=== PATIENT | female | born 1935 | race Caucasian/White ===

== ENCOUNTER 2017-01-20 01:25 | Inpatient (IN) | payer MEDICARE, OTHER ==
[~2017-01-20] VITALS: Ht 165.1 cm; Wt 52.2 kg
--- NOTE | ~2017-01-20 | DS ---
Discharge Summary [facility] [address] [place]. [address] NAME: HALIMA SALDAÑA : 31 STATUS : DIS IN PAT#: [id number] AGE: 81 ADM/REG DATE : 01/20/17 MR#: [id number] REPORT SERV DATE: 01/25/17 DICTATED BY: MIRA BOSTON DATE: 01/24/17 REPORT STATUS : Draft TRANSCRIBED BY: MODL DATE: 01/24/17 ADMISSION DATE: 01/20/2017 DISCHARGE DATE: 01/24/2017 PRINCIPAL DIAGNOSIS: Acute on chronic systolic congestive heart failure with pleural effusion. SECONDARY DIAGNOSES: Hypoxemic respiratory failure with tissue hypoxia causing acute encephalopathy in the setting of chronic dementia, also atrial fibrillation, general debility. HISTORY OF PRESENT ILLNESS: Please see Dr. Pizarro's dictation on 01/20/2017. HOSPITAL COURSE: Admitted with acute on chronic systolic congestive heart failure with significant alteration in mental status. She was received diuretics, afterload reducers with gradual improvement in body water, but dyspnea however remained. She was made DNR and there was concern that this would actually be hospice care. However, with afterload reduction, she had some improvement. A thoracentesis was done, evacuating the right pleural effusion, found to be transudative, and she did feel significantly better. She was started upon Entresto therapy and met the maximum benefit of hospitalization by 01/24/2017. She continue hydralazine 50 b.i.d., Isordil 20 b.i.d., Remeron 15 at bedtime, Megace 400 daily, Lopressor 12.5 b.i.d., daily Demadex, magnesium and potassium supplementation, aspirin, Xanax 0.25 b.i.d., Requip. RSM/ADA Mira Boston M.D. / [id number] CC: Jessica Willis M.D.
--- NOTE | ~2017-01-20 | HP ---
History And Physical [facility] [address] [place]. [address] NAME: HALIMA JORGENSEN : 31 STATUS : REG ER PAT#: [id number] AGE: 81 ADM/REG DATE : 01/20/17 MR#: [id number] REPORT SERV DATE: 01/20/17 DICTATED BY: ITZEL CAO DATE: 01/20/17 REPORT STATUS : Draft TRANSCRIBED BY: MODL DATE: 01/20/17 DATE OF ADMISSION: 01/20/2017 POINT OF ENTRY: [facility] Emergency Department. PRIMARY EVENT PLANNING MANAGER: Unknown at this time. PRIMARY VASCULAR SURGEON: Fantasma Christian M.D. CHIEF COMPLAINT: Hypoxia, altered mental status, and slurred speech. HISTORY OF PRESENT ILLNESS: Ms. Jorgensen is an 81-year-old female with a history of chronic systolic congestive heart failure ejection fraction of 25% to 30%, atrial fibrillation on anticoagulation, and chronic kidney disease stage 3 as well as dementia, who presents to the emergency room today from her long-term correction facility for reports of shortness of breath with hypoxemia as well as altered mental status and slurred speech. Majority of history is obtained from the patient's who is at bedside as the patient has significant dementia and is a poor historian. He states that his main concern is that she is very confused more so over her baseline even with her history of dementia. He also states that he has noted some slurred speech and impaired communication which again he states is new despite her history of dementia. The facility was most concerned about her shortness of breath as well as hypoxemia. She is chronically on 2 L by nasal cannula. When they noted her shortness of breath, they detected she was hypoxic, reportedly saturating in the 80s on 2 L by nasal cannula. They bumped her to 3 L. This did not seem to improve her hypoxemia and therefore, they called EMS for transfer to [facility]. denies any other troubles such as fevers, night sweats, chills, cough, sputum production, chest pain, palpitations, abdominal pain, nausea, vomiting, diarrhea, constipation, melena, or hematochezia. Initial evaluation in the emergency room noted for the patient saturating well on 2 L nasal cannula; however, chest x-ray does show right pleural effusion as well as intravascular volume overload. BNP elevated at 1965, has a potassium of 5.6, white count of 10.8, INR of 3.2. EKG showed AFib. The patient was given 40 mg of IV Lasix and admitted to the Hospitalist Service. REVIEW OF SYSTEMS: Comprehensive review of systems otherwise negative unless listed in history of present illness. PREVIOUS MEDICAL HISTORY: 1. Atrial fibrillation, on Coumadin. 2. Chronic systolic congestive heart failure, ejection fraction of 25% to 30%. History And Physical [address] [address] NAME: HALIMA JORGENSEN : 31 STATUS : REG ER PAT#: [id number] AGE: 81 ADM/REG DATE : 01/20/17 MR#: [id number] REPORT SERV DATE: 01/20/17 DICTATED BY: ITZEL CAO DATE: 01/20/17 REPORT STATUS : Draft TRANSCRIBED BY: ADA DATE: 01/20/17 3. Chronic kidney disease stage 3, baseline creatinine approximately 1.3 to 1.5. 4. Dementia. 5. Hypothyroidism. 6. Hypertension. 7. 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 8. Infrarenal abdominal aortic stenosis, status post stent placement and dilatation. SURGICAL HISTORY: 1. Left upper extremity open embolectomy. 2. Left lower extremity open thromboembolectomy. 3. Abdominal hysterectomy. 4. Cataract surgery. 5. Infrarenal abdominal aortic dilatation and stent placement. ALLERGIES: NO KNOWN DRUG ALLERGIES. HOME MEDICATIONS: Pending at the time of dictation. SOCIAL HISTORY: Denies any tobacco, alcohol, or illicits. She is a former smoker, has been a long-term resident of [facility] in [place], [place], for few years now secondary to dementia. FAMILY MEDICAL HISTORY: Unknown at this time. The does not provide any history for me. He thinks father may have of complications of pneumonia. LABS AND IMAGIN. White count is 10.8, hemoglobin is 9.8, hematocrit is 31.6, platelet count is 194. INR is 3.2. 2. Sodium is 137, potassium 5.6, chloride 105, carbon dioxide 25, BUN 46, creatinine 1.36, glucose is 150, calcium is 9.1, protein is 8.3, albumin is 3.5, bilirubin is 1.0, ALT is 30, AST is 33, alk phos is 82. 3. Lactic acid is 1.3. 4. Troponin is less than 0.02. BNP is 1965. 5. ABG; pH is 7.37, pCO2 is 44, pO2 is 89, bicarb is 24, saturating 96% on 2 L nasal cannula. 6. EKG per my review shows atrial fibrillation with right axis deviation, but no evidence of any acute ischemia or infarction. 7. Chest x-ray per my review shows cardiomegaly with a small right pleural effusion with an evidence of intravascular volume overload and pulmonary venous congestion. 8. Per review of [employer] [facility] [employer], she has an echocardiogram from 12/2016, shows ejection fraction of 25% to 30% with multiple areas of focal wall motion abnormalities with low normal RV systolic function with aortic sclerosis without stenosis as well as some [id number] valvular disease. PHYSICAL EXAMINATION: VITAL SIGNS: Blood pressure is 186/88, pulse is 65, respirations 20, saturating 94% on room History And Physical [address] [address] NAME: HALIMA JORGENSEN : 31 STATUS : REG ER PAT#: [id number] AGE: 81 ADM/REG DATE : 01/20/17 MR#: [id number] REPORT SERV DATE: 01/20/17 DICTATED BY: ITZEL CAO DATE: 01/20/17 REPORT STATUS : Draft TRANSCRIBED BY: ADA DATE: 01/20/17 air. On recheck, blood pressure is now 135/70, saturating 97% on 2 L nasal cannula, pulse is in the 60s. GENERAL: The patient is awake and alert, in no acute distress. She is a chronically ill- appearing elderly female. is at bedside. HEENT: Atraumatic and normocephalic. Slightly dry mucous membranes. Pupils are equal, round, reactive to light and accommodation. Extraocular eye movements intact. No scleral icterus. NECK: No jugular venous distention. No carotid bruits. CARDIAC: Irregularly irregular rate and rhythm. No murmurs or gallops. LUNGS: On oxygen, but in no distress. Does have some decreased breath sounds at bases, right greater than left with some mild inspiratory crackles and rales primarily in the bases. ABDOMEN: Obese, soft, nontender, nondistended. Good bowel sounds. No rebound, guarding, or rigidity. EXTREMITIES: Warm and perfused with trace to 1+ lower extremity edema. SKIN: Warm and dry. PSYCHIATRIC: Affect is confused. NEUROLOGIC: She is awake and alert to person only. She can only tell me her first name. She does follow all commands. Moves all extremities well. Cranial nerves II through XII are grossly intact. The patient does have some mild dysarthria as well as possible receptive and/or expressive aphasia; however, this is difficult to determine in the setting of the patient's underlying dementia. ASSESSMENT: Ms. Jorgensen is an 81-year-old female with history of systolic congestive heart failure who was brought to the emergency room today with reports of shortness of breath, hypoxemia, also with concerns for altered mental status, slurred speech, and possible aphasia. PROBLEM LIST: 1. Acute on chronic systolic congestive heart failure. 2. Hypoxemia. 3. Hyperkalemia. 4. Chronic kidney disease, stage 3. 5. Leukocytosis. 6. Encephalopathy. 7. Dysarthria and possible aphasia. 8. Dementia. 9. Atrial fibrillation, on anticoagulation. PLAN: 1. Acute on chronic systolic congestive heart failure. We will provide IV diuresis as well as sodium and fluid restriction. 2. Hypoxemia. The patient currently is saturating well on 2 L by nasal cannula which per my understanding is her baseline. We will continue to monitor. 3. Hyperkalemia. Holding the patient's potassium supplementation as well as angiotensin receptor john. We will provide some IV calcium gluconate as well as Kayexalate, also suspect this will lower with aggressive IV Lasix diuresis. History And Physical [address] [place]. [address] NAME: HALIMA JORGENSEN : 31 STATUS : REG ER PAT#: [id number] AGE: 81 ADM/REG DATE : 01/20/17 MR#: [id number] REPORT SERV DATE: 01/20/17 DICTATED BY: ITZEL CAO DATE: 01/20/17 REPORT STATUS : Draft TRANSCRIBED BY: MODAracely DATE: 01/20/17 4. Altered mental status with dysarthria and aphasia, unclear etiology at this time. We will check a stat CT scan of the brain to rule out stroke and/or hemorrhage as she is on anticoagulation, also checking urinalysis, ammonia level, thyroid function studies, as well as vitamin B12 level. Should initial workup be unremarkable, the patient may we need MRI/MRA for formal stroke and TIA workup. 5. Atrial fibrillation, on anticoagulation. The patient's heart rate is currently rate controlled. Her INR is 3.2. We will have pharmacy to dose her Coumadin. 6. Chronic kidney disease, stage 3. Appears to be within her recent baseline. Continue to monitor. 7. Dementia, unclear baseline at this time; however, states that he feels that she is more confused and having difficulties communicating compared to her baseline. We will continue to monitor. 8. Leukocytosis, unclear etiology at this time. Chest x-ray is clear. Checking urinalysis. 9. DVT prophylaxis. She is on Coumadin and therapeutically anticoagulated. CODE STATUS: The patient is to be DNR/DNI. This was confirmed with the at bedside. ALFIE/MODAracely Itzel Cao MD / [id number] CC: Jessica Fay M.D.
--- NOTE | ~2017-01-20 | DS ---
Discharge Summary [facility] [address] [place]. [address] NAME: HALIMA SALDAÑA : 31 STATUS : DIS IN PAT#: [id number] AGE: 81 ADM/REG DATE : 01/20/17 MR#: [id number] REPORT SERV DATE: 01/27/17 DICTATED BY: MIRA BOSTON DATE: 01/24/17 REPORT STATUS : Draft TRANSCRIBED BY: MODL DATE: 01/24/17 ADMISSION DATE: 01/20/2017 DISCHARGE DATE: 01/24/2017 ADDENDUM: Please send a copy of the aforementioned discharge summary to Dr. Raven Branch, primary care provider, with whom she will follow up p.r.n. and to [facility] where she lives. Greater than 30 minutes was spent in the care of this patient's discharge planning on discharge day. HE/ADA Mira Boston M.D. / [id number] CC: Jessica Willis M.D.
[~2017-01-20 01:25] MED LIST: 8 HOUR650 MG PO; APRES25 PO; ASAB PO; CELEXA10 PO; COUMADIN3 MG PO; COZAAR100 MG PO; KLOR-CON 1010 MEQ PO; L20 PO; LEVOTHYROXIN88 MCG PO; LOP50 PO; NORV10 PO; P125 PO; PCET PO; PRAVACHOL40 MG PO; REQUIP5 PO; SENTAB PO; SEROQUEL25 PO; THERGRANM PO; TRANDAT100 PO
[2017-01-20 02:40] LABS: ALLENS TEST Pos; CARBOXYHEMOGLOBIN 1.7 % (0-3); DEVICE NC; HCO3 (ACTUAL BICARBONATE) 24.4 MEQ/L (23-27); HEMOBLOGIN CONTENT 10.5 G/DL (12-16); INSTRUMENT SERIAL # 8087; METHEMOGLOBIN 0.4 % (0-3); OPERATOR ID 33449; PCO2 (CO2 TENSION) 44 MMHG (35-45); PO2 (O2 TENSION) 89 MMHG (79-93); SAMPLE Arterial; pH 7.37 (7.37-7.43)
[2017-01-20 02:59] LABS: BASOPHILS 0.2 %; BASOPHILS ABSOLUTE 0.02 10/3/uL (0.0-0.16); EOSINOPHILS 3.1 %; EOSINOPHILS ABSOLUTE 0.34 10/3/uL (0.0-0.53); HEMATOCRIT 31.6 % (36.0-48.0); HEMOGLOBIN 9.8 g/dL (12.0-16.0); IMMATURE GRANULOCYTES 0.5 %; IMMATURE GRANULOCYTES ABSOLUTE 0.05 10/3/uL (0.0-0.11); LYMPHOCYTES 6.9 %; LYMPHOCYTES ABSOLUTE 0.75 10/3/uL (0.67-4.30); MEAN CORPUSCULAR HEMOGLOB 30.2 pg (26.0-34.0); MEAN CORPUSCULAR VOLUME 97.5 fL (80-100); MEAN PLATELET VOLUME 9.5 fL (9.2-13.0); MONOCYTES 6.1 %; MONOCYTES ABSOLUTE 0.66 10/3/uL (0.21-1.20); NEUTROPHILS 83.2 %; NEUTROPHILS ABSOLUTE 9.02 10/3/uL (2.02-8.40); PLATELET COUNT 194 10/3/uL (150-400); RBC DISTRIBUTION WIDTH 15.1 % (12.0-16.0); RED CELL COUNT 3.24 10/6/uL (4.0-5.6); WHITE BLOOD CELLS 10.8 10/3/uL (4.5-10.5)
[2017-01-20 03:00] LABS: MANUAL DIFF NO %
[2017-01-20 03:06] LABS: INTERNATIONAL NORMAL RATI 3.2 UNITS (-); PROTIME (NOT ORD) 32.8 SEC (12.0-14.5)
[2017-01-20 03:16] LABS: LACTATE 1.3 MMOL/L (0.3-2.4)
[2017-01-20 03:17] LABS: A/G RATIO 0.7 (0.7-1.9); ALBUMIN 3.5 G/DL (3.5-5.0); CALCIUM, SERUM 9.1 MG/DL (8.5-10.4); CHLORIDE, SERUM 105 MMOL/L (96-112); CO2 (CARBON DIOXIDE) 25 MMOL/L (24-34); CREATININE 1.36 MG/DL (0.55-1.02); GFR AFRICAN AMERICAN 42 ML/MIN (>=60); GFR NON AFRICAN AMERICAN 36 ML/MIN (>=60); GLOBULIN 4.8 G/DL (2.5-4.1); GLUCOSE, SERUM 150 MG/DL (60-99); POTASSIUM, SERUM 5.6 MMOL/L (3.5-5.3); SGOT(AST) 33 U/L (5-40); SGPT(ALT) 30 U/L (5-65); SODIUM, SERUM 137 MMOL/L (135-148); TOTAL PROTEIN 8.3 G/DL (6.0-8.5); TROPONIN I <0.02 NG/ML (<0.05)
[2017-01-20 03:23] LABS: ALKALINE PHOSPHATASE 82 U/L (45-117); BUN (BLOOD UREA NITROGEN) 46 MG/DL (6-23)
[2017-01-20] MEDS ORDERED: COUMADIN3 MG PO (04:32)
[2017-01-20] MEDS ORDERED: PCET PO ×2 (04:33→04:34)
[2017-01-20] MEDS ORDERED: X25 PO (04:35)
[2017-01-20] MEDS ORDERED: ACETSUP650 PR (04:35)
[2017-01-20] MEDS ORDERED: X5 PO (04:36)
[2017-01-20] MEDS ORDERED: REQUIP5 PO (04:36)
[2017-01-20] MEDS ORDERED: SEROQUEL25 PO (04:37)
[2017-01-20] MEDS ORDERED: LEVOTHYROXIN88 MCG PO (04:38)
[2017-01-20] MEDS ORDERED: DIOV80 PO (04:38)
[2017-01-20] MEDS ORDERED: ASAB PO (04:39)
[2017-01-20] MEDS ORDERED: CELEXA10 PO (04:39)
[2017-01-20] MEDS ORDERED: APRES25 PO (04:40)
[2017-01-20] MEDS ORDERED: NORV10 PO (04:40)
[2017-01-20] MEDS ORDERED: SENTAB PO (04:41)
[2017-01-20] MEDS ORDERED: LOP50 PO (04:41)
[2017-01-20] MEDS ORDERED: L20 PO (04:42)
[2017-01-20 06:49] LABS: WBC (NOT ORDERED) (RFLEX) 0 (0-5)
[2017-01-20 06:58] LABS: ASCORBIC ACID (UR NOT ORDER) NEG (NEG); BILIRUBIN, URINE NEGATIVE (NEG); ER URINALYSIS TAT 0 Hrs 10 Mins; KETONE, URINE NEGATIVE (NEG); LEUKOCYTE ESTERASE(NOT OR NEG (NEG); NITRITE (URINE) NEG (NEG)
[2017-01-20 12:05] LABS: FREE T4 1.56 NG/DL (0.76-1.46); TROPONIN I <0.02 NG/ML (<0.05)
[2017-01-20 12:06] LABS: CK-MB 2.3 NG/ML; CPK 168 U/L (0-200)
[2017-01-20 16:57] LABS: TROPONIN I <0.02 NG/ML (<0.05)
[2017-01-20 16:59] LABS: CK-MB 2.1 NG/ML; CPK 112 U/L (0-200)
[2017-01-21 05:08] LABS: BASOPHILS 0.2 %; BASOPHILS ABSOLUTE 0.02 10/3/uL (0.0-0.16); EOSINOPHILS 6.5 %; EOSINOPHILS ABSOLUTE 0.57 10/3/uL (0.0-0.53); HEMATOCRIT 29.9 % (36.0-48.0); HEMOGLOBIN 9.5 g/dL (12.0-16.0); IMMATURE GRANULOCYTES 0.3 %; IMMATURE GRANULOCYTES ABSOLUTE 0.03 10/3/uL (0.0-0.11); LYMPHOCYTES 7.7 %; LYMPHOCYTES ABSOLUTE 0.68 10/3/uL (0.67-4.30); MEAN CORPUS HGB CONC 31.8 g/dL (32.0-36.0); MEAN CORPUSCULAR HEMOGLOB 30.6 pg (26.0-34.0); MEAN CORPUSCULAR VOLUME 96.5 fL (80-100); MEAN PLATELET VOLUME 9.4 fL (9.2-13.0); MONOCYTES 7.3 %; MONOCYTES ABSOLUTE 0.64 10/3/uL (0.21-1.20); NEUTROPHILS ABSOLUTE 6.87 10/3/uL (2.02-8.40); PLATELET COUNT 177 10/3/uL (150-400); RBC DISTRIBUTION WIDTH 14.8 % (12.0-16.0); WHITE BLOOD CELLS 8.8 10/3/uL (4.5-10.5)
[2017-01-21 05:10] LABS: MANUAL DIFF NO %
[2017-01-21 05:15] LABS: INTERNATIONAL NORMAL RATI 3.7 UNITS (-); PROTIME (NOT ORD) 36.7 SEC (12.0-14.5)
[2017-01-21 05:36] LABS: CALCIUM, SERUM 9.1 MG/DL (8.5-10.4); CHLORIDE, SERUM 102 MMOL/L (96-112); CO2 (CARBON DIOXIDE) 27 MMOL/L (24-34); CREATININE 1.27 MG/DL (0.55-1.02); GFR AFRICAN AMERICAN 45 ML/MIN (>=60); GFR NON AFRICAN AMERICAN 39 ML/MIN (>=60); SODIUM, SERUM 140 MMOL/L (135-148)
[2017-01-21 05:37] LABS: BUN (BLOOD UREA NITROGEN) 42 MG/DL (6-23); GLUCOSE, SERUM 117 MG/DL (60-99); POTASSIUM, SERUM 3.5 MMOL/L (3.5-5.3)
[2017-01-22 04:24] LABS: BASOPHILS 0.3 %; BASOPHILS ABSOLUTE 0.03 10/3/uL (0.0-0.16); EOSINOPHILS 7.6 %; EOSINOPHILS ABSOLUTE 0.88 10/3/uL (0.0-0.53); HEMATOCRIT 30.4 % (36.0-48.0); HEMOGLOBIN 9.6 g/dL (12.0-16.0); IMMATURE GRANULOCYTES 0.3 %; IMMATURE GRANULOCYTES ABSOLUTE 0.04 10/3/uL (0.0-0.11); LYMPHOCYTES 7.3 %; LYMPHOCYTES ABSOLUTE 0.85 10/3/uL (0.67-4.30); MEAN CORPUS HGB CONC 31.6 g/dL (32.0-36.0); MEAN CORPUSCULAR HEMOGLOB 30.4 pg (26.0-34.0); MEAN CORPUSCULAR VOLUME 96.2 fL (80-100); MONOCYTES 9.3 %; MONOCYTES ABSOLUTE 1.08 10/3/uL (0.21-1.20); NEUTROPHILS 75.2 %; NEUTROPHILS ABSOLUTE 8.76 10/3/uL (2.02-8.40); PLATELET COUNT 183 10/3/uL (150-400); RBC DISTRIBUTION WIDTH 14.8 % (12.0-16.0); RED CELL COUNT 3.16 10/6/uL (4.0-5.6); WHITE BLOOD CELLS 11.6 10/3/uL (4.5-10.5)
[2017-01-22 04:25] LABS: MANUAL DIFF NO %
[2017-01-22 04:30] LABS: INTERNATIONAL NORMAL RATI 2.1 UNITS (-)
[2017-01-22 04:33] LABS: PROTIME (NOT ORD) 23.1 SEC (12.0-14.5)
[2017-01-22 04:36] LABS: BUN (BLOOD UREA NITROGEN) 39 MG/DL (6-23); CALCIUM, SERUM 8.8 MG/DL (8.5-10.4); CHLORIDE, SERUM 103 MMOL/L (96-112); CO2 (CARBON DIOXIDE) 27 MMOL/L (24-34); CREATININE 1.27 MG/DL (0.55-1.02); GFR AFRICAN AMERICAN 45 ML/MIN (>=60); GFR NON AFRICAN AMERICAN 39 ML/MIN (>=60); GLUCOSE, SERUM 129 MG/DL (60-99); POTASSIUM, SERUM 3.7 MMOL/L (3.5-5.3); SODIUM, SERUM 137 MMOL/L (135-148)
[2017-01-23 05:40] LABS: BASOPHILS 0.3 %; BASOPHILS ABSOLUTE 0.04 10/3/uL (0.0-0.16); EOSINOPHILS 7.2 %; EOSINOPHILS ABSOLUTE 0.97 10/3/uL (0.0-0.53); HEMATOCRIT 32.2 % (36.0-48.0); HEMOGLOBIN 9.9 g/dL (12.0-16.0); IMMATURE GRANULOCYTES 0.3 %; IMMATURE GRANULOCYTES ABSOLUTE 0.04 10/3/uL (0.0-0.11); LYMPHOCYTES 11.2 %; LYMPHOCYTES ABSOLUTE 1.52 10/3/uL (0.67-4.30); MEAN CORPUS HGB CONC 30.7 g/dL (32.0-36.0); MEAN CORPUSCULAR HEMOGLOB 29.2 pg (26.0-34.0); MEAN PLATELET VOLUME 8.8 fL (9.2-13.0); MONOCYTES 7.7 %; MONOCYTES ABSOLUTE 1.04 10/3/uL (0.21-1.20); NEUTROPHILS 73.3 %; NEUTROPHILS ABSOLUTE 9.93 10/3/uL (2.02-8.40); PLATELET COUNT 209 10/3/uL (150-400); RED CELL COUNT 3.39 10/6/uL (4.0-5.6); WHITE BLOOD CELLS 13.5 10/3/uL (4.5-10.5)
[2017-01-23 05:41] LABS: MANUAL DIFF NO %
[2017-01-23 05:46] LABS: INTERNATIONAL NORMAL RATI 1.5 UNITS (-); PARTIAL THROMBO TIME 33.7 SEC (22.5-37.2); PROTIME (NOT ORD) 17.7 SEC (12.0-14.5)
[2017-01-23 05:55] LABS: A/G RATIO 0.7 (0.7-1.9); ALBUMIN 3.1 G/DL (3.5-5.0); ALKALINE PHOSPHATASE 71 U/L (45-117); CALCIUM, SERUM 9.1 MG/DL (8.5-10.4); CHLORIDE, SERUM 106 MMOL/L (96-112); CO2 (CARBON DIOXIDE) 23 MMOL/L (24-34); CREATININE 1.19 MG/DL (0.55-1.02); GFR AFRICAN AMERICAN 49 ML/MIN (>=60); GFR NON AFRICAN AMERICAN 42 ML/MIN (>=60); GLOBULIN 4.4 G/DL (2.5-4.1); GLUCOSE, SERUM 111 MG/DL (60-99); POTASSIUM, SERUM 4.1 MMOL/L (3.5-5.3); SGOT(AST) 23 U/L (5-40); SGPT(ALT) 23 U/L (5-65); SODIUM, SERUM 138 MMOL/L (135-148); TOTAL BILIRUBIN 0.9 MG/DL (0-1.2); TOTAL PROTEIN 7.5 G/DL (6.0-8.5)
[2017-01-23 05:58] LABS: BUN (BLOOD UREA NITROGEN) 32 MG/DL (6-23)
[2017-01-23 18:18] LABS: BF TOTAL CELL CT (NOT ORD 865 /MM3; BODY FLUID RBC (NOT ORD) 11761 /MM3; LDH BODY FLUID (NOT ORD) 91 U/L; PROTEIN BODY FLUID 2.7 G/DL
[2017-01-23 18:34] LABS: BD FL LYMPH (NOT ORD) 62 %; BD FL SOURCE (NOT ORD) RT PLEURAL; BF BASO (NOT OF) 0 %; BF LARGE MONONUCLEAR 35 %; BODY FLUID EOS (NOT ORD) 2 %; BODY FLUID SEG (NOT ORD) 1 %
[2017-01-24 06:48] LABS: INTERNATIONAL NORMAL RATI 1.5 UNITS (-); PROTIME (NOT ORD) 17.7 SEC (12.0-14.5)
[2017-01-24 06:53] LABS: BUN (BLOOD UREA NITROGEN) 28 MG/DL (6-23); CALCIUM, SERUM 9.3 MG/DL (8.5-10.4); CHLORIDE, SERUM 107 MMOL/L (96-112); CO2 (CARBON DIOXIDE) 20 MMOL/L (24-34); CREATININE 1.32 MG/DL (0.55-1.02); GFR AFRICAN AMERICAN 43 ML/MIN (>=60); GFR NON AFRICAN AMERICAN 37 ML/MIN (>=60); GLUCOSE, SERUM 104 MG/DL (60-99); POTASSIUM, SERUM 4.7 MMOL/L (3.5-5.3); SODIUM, SERUM 137 MMOL/L (135-148)
== END 2017-01-24 16:57 | DRG 291 ==
LOC: ER 01:25 → 7NO 06:46
PROVIDERS: Emergency Medicine; Internal Medicine
PROC: 0W993ZZ Drainage of Right Pleural Cavity, Percutaneous Approach (ICD-10-PCS; principal; 2017-01-23)
DX: I13.0 Hypertensive heart and chronic kidney disease with heart failure and stage 1 through stage 4 chronic kidney disease, or unspecified chronic kidney disease (principal); I50.23 Acute on chronic systolic (congestive) heart failure; J96.21 Acute and chronic respiratory failure with hypoxia; E43 Unspecified severe protein-calorie malnutrition; G93.40 Encephalopathy, unspecified; I48.91 Unspecified atrial fibrillation; E87.5 Hyperkalemia; J91.8 Pleural effusion in other conditions classified elsewhere; Z99.81 Dependence on supplemental oxygen; R64 Cachexia; Z68.1 Body mass index [BMI] 19.9 or less, adult; N18.3 Chronic kidney disease, stage 3 (moderate); Z79.01 Long term (current) use of anticoagulants; E03.9 Hypothyroidism, unspecified; R53.81 Other malaise; Z66 Do not resuscitate; R62.7 Adult failure to thrive
CPT/HCPCS: 32555; 36415; 36600; 70450; 71010; 71035; 80048; 80053; 81001; 82140; 82550; 82553; 82607; 82805; 83605; 83615; 83735; 83880; 84157; 84439; 84443; 84481; 84484; 85025; 85610; 85730; 86850; 86900; 86901; 87015; 87040; 87070; 87116; 87205; 88112; 88305; 89051; 93005; 94640; 96374; 99285; A9270-GY; J0610; J2250